=== PATIENT | female | born 1960 | race Caucasian/White ===

== ENCOUNTER → 2016-06-02 | Outpatient (CLI) | payer OTHER ==
[~2016-06-02] VITALS: Ht 167.6 cm; Wt 109.7 kg
[~2016-06-02] MED LIST: TYLENOL EXTRA500 MG PO
== END | disposition home or self-care (01) ==
LOC: AMB 05-19 07:30
DX: Z12.11 Encounter for screening for malignant neoplasm of colon (principal); D12.3 Benign neoplasm of transverse colon; K63.5 Polyp of colon; D12.4 Benign neoplasm of descending colon; K57.30 Diverticulosis of large intestine without perforation or abscess without bleeding; K64.8 Other hemorrhoids; Z68.39 Body mass index [BMI] 39.0-39.9, adult; Z96.653 Presence of artificial knee joint, bilateral
CPT/HCPCS: 88305